=== PATIENT | female | born 1980 | race Caucasian/White ===

== ENCOUNTER 2024-08-08 16:35 | Outpatient (REF) | payer OTHER, MEDICAID, SELFPAY | END 2024-08-08 16:36 | disposition home or self-care (01) | LOC: LAB 16:35 | PROVIDERS: PCP Family Medicine; Visit Provider Obstetrics & Gynecology | DX: N92.1 Excessive and frequent menstruation with irregular cycle (principal); R10.2 Pelvic and perineal pain ==

== ENCOUNTER 2024-08-10 14:38 | Outpatient (OUT) | payer OTHER, BC, SELFPAY ==
--- OUTSIDE RECORDS SUMMARY | 2024-07-27 08:00 | XMS_ITS | Encounter Summary ---
Author Organization [facility] Address [address] [place] [address] Care Team Providers Care Passenger Locomotive Engineer Name Role Phone Sariah Ryan MD Primary Care Provider Encounter Details Date Type Department Care Team (Latest Contact Info) Description 07/27/2024 8:00 AM EDT Ancillary Procedure [facility] [address] [facility] [place] [address] Pelvic pain in female; Menorrhagia with irregular cycle Social History Tobacco Use Types Packs/Day Years Used Date Smoking Tobacco: Every Day Cigarettes Smokeless Tobacco: Never Alcohol Use Standard Drinks/Week Comments Yes 0 (1 standard drink = 0.6 oz pur e alcohol) caffeine 3-4 cups/day PHQ-2 Answer Date Recorded Patient Health Questionnaire-2 Score 0 01/07/2024 Comments No Sex and Gender Information Value Date Recorded Sex Assigned at Not on file Legal Sex Female 7:21 PM EDT Gender Identity Not on file Sexual Orientation Not on file documented as of this encounter Plan of Treatment Not on file documented as of this encounter Procedures Procedure Name Priority Date/Time Associated Diagnosis Comments US PELVIC COMPLETE W/ TV Routine 07/27/2024 8:35 AM EDT Pelvic pain in female Menorrhagia with irregular cycle documented in this encounter Results * US Pelvis w/ TV (07/27/2024 8:35 AM EDT) Anatomical Region Laterality Modality Pelvis Ultrasound 07/28/2024 10:2 4 AM EDT Narrative 07/28/2024 10:24 AM EDT EXAM: US PELVIC COMPLETE W/ TV HISTORY: Pelvic pain, menorrhagia, heavy and longer menstrual cycles x 1.5 years. COMPARISON: None available. TECHNIQUE: Two-dimensional transabdominal grayscale ultrasound imaging of the pelvis was performed. Color flow Doppler imaging of the ovaries were also performed. Transvaginal was performed. FINDINGS: UTERUS 8.4 x 3.9 x 5.2 cm The uterus is anteverted in position and demonstrates a normal, homogeneous echotexture. ENDOMETRIUM 0.5 cm The endometrium demonstrates a normal, homogeneous echotexture. RIGHT OVARY 4.1 x 2.0 x 3.8 cm The right ovary demonstrates a normal echotexture. There is normal color Doppler flow. There is a 1.7 cm dominant follicle. LEFT OVARY 2.9 x 1.2 x 2.7 cm The left ovary demonstrates a normal echotexture. There is normal color Doppler flow. No fluid is present within the cul-de-sac. IMPRESSION: 1. Unremarkable ultrasound of the pelvis. 2. Normal color Doppler flow within the bilateral ovaries. Interpreted by: Electronically signed by JACQUELINE ROLLINS II, MD, PHD at 28-Jul-2024 10:23:19 AM [facility] Procedure Note Jacqueline Rollins MD - 07/28/2024 EXAM: US PELVIC COMPLETE W/ TV HISTORY: Pelvic pain, menorrhagia, heavy and longer menstrual cycles x1.5 years. COMPARISON: None available. TECHNIQUE: Two-dimensional transabdominal grayscale ultrasound imaging ofthe pelvis was performed. Color flow Doppler imaging of the ovaries werealso performed. Transvaginal was performed. FINDINGS: UTERUS 8.4 x 3.9 x 5.2 cm The uterus is anteverted in position and demonstrates a normal,homogeneous echotexture. ENDOMETRIUM 0.5 cm The endometrium demonstrates a normal, homogeneous echotexture. RIGHT OVARY 4.1 x 2.0 x 3.8 cm The right ovary demonstrates a normal echotexture. There is normal colorDoppler flow. There is a 1.7 cm dominant follicle. LEFT OVARY 2.9 x 1.2 x 2.7 cm The left ovary demonstrates a normal echotexture. There is normal colorDoppler flow. No fluid is present within the cul-de-sac. IMPRESSION: 1. Unremarkable ultrasound of the pelvis. 2. Normal color Doppler flow within the bilateral ovaries. Interpreted by: Electronically signed by JACUQELINE ROLLINS II, MD, PHD [id number] 10:23:19 AM [facility] us Alexandru Alan DO [facility] US PROCEDURES Final Result documented in this encounter Visit Diagnoses Diagnosis Pelvic pain in female Unspecified symptom associated with female genital organs Menorrhagia with irregular cycle documented in this encounter Care Teams Passenger Locomotive Engineer Relationship Specialty Start Date End Date Sariah Ryan MD [address] [place] [address] PCP - General Family Medicine 06/23/22 documented as of this encounter
--- OUTSIDE RECORDS SUMMARY | 2024-08-08 10:30 | XMS_ITS | Encounter Summary ---
Author Organization [facility] Address [address] [place] [address] Care Team Providers Care Supervisor Painting Shipyard Name Role Phone Sariah Ryan MD Primary Care Provider [phone] Reason for Visit * Reason Comments Pre-op Visit EMBX Encounter Details Date Type Department Care Team (Late st Contact Info) Description 08/08/2024 10:30 AM EDT Procedure Visit [facility] OB [address] [facility] [facility] [place] [address] Alexandru Alan, DO [address] [place] [address] Pre-op examination; Dyspareunia in female; Menorrhagia with regular cycle; Pelvic pain; Dysmenorrhea Social History Tobacco Use Types Packs/Day Years [...] on file documented as of this encounter Last Filed Vital Signs Vital Sign Reading Time Taken Comments Blood Pressure 108/70 08/08/2024 10:40 AM EDT Pulse - - Temperature - - Respiratory Rate - - Oxygen Saturation - - Inhaled Oxygen Concentration - - Weight 69.3 kg (152 lb 12 oz) 08/08/2024 10:40 A M EDT Height - - Body Mass Index 24.65 01/07/2024 2:42 PM EST documented in this encounter Progress Notes * Claudia Ruvalcaba - 08/08/2024 10:30 AM EDT Reason for Appointment: Patient ID: Felicitas Waldron is a 43 y.o. female who presents for Pre-op Visit and EMBX Patient presents today for Pre Op/Endometrial Biopsy appointment. Patient is scheduled to undergo Da Rodrick assisted Laparoscopic Hysterectomy, possible exploratory laparotomy, possible BSO, possible cystoscopy on 09-06-[address] Alan at [facility]. 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 12/08/2022 Situational stress 04/07/2023 Resolved Ambulatory Problems Diagnosis Date Noted No Resolved Ambulatory Problems Past Medical History: Diagnosis Date Dean's esophagus Esophageal reflux Gastritis and gastroduodenitis History of medical problems Kidney infection 2011 Menometrorrhagia Migraine without status migrainosus, not intractable, unspecified migraine type HISTORY PAST MEDICAL HISTORY SOCIAL HISTORY Past Medical History: Diagnosis Date Dean's esophagus no treatment and cleared Esophageal reflux Gastritis and gastroduodenitis without mention of hemorrhage History of medical problems insomnia Kidney infection 2011 Menometrorrhagia Migraine without status migrainosus, not intractable, unspecified migraine type Social History Tobacco Use Smoking status: Every Day Types: Cigarettes Smokeless tobacco: Never Substance Use Topics Alcohol use: Yes Comment: caffeine 3-4 cups/day Drug use: Never FAMILY HISTORY Family History Problem Relation Name Age of Onset Thyroid disease Mother Macular degeneration Mother Drug abuse Father marijuana Alcohol abuse Father SURGICAL HISTORY Past Surgical History: Procedure Laterality Date CARPAL TUNNEL RELEASE Left 2011 CYST REMOVAL Left 2006 left wrist ENDOMETRIAL ABLATION 2011 menometrorrhagia KNEE SURGERY 1999 TONSILLECTOMY 1987 TUBAL LIGATION Bilateral 2013 REVIEW OF SYSTEMS Review of Systems: Review of Systems Constitutional: Negative. HENT: Negative. Eyes: Negative. Respiratory: Negative. Cardiovascular: Negative. Gastrointestinal: Negative. Genitourinary: Positive for dyspareunia, menstrual problem and pelvic pain. Musculoskeletal: Negative. Skin: Negative. Neurological: Negative. All other systems reviewed and are negative. Hematological: Negative. Endocrine: Negative. Allergic/Immunologic: Negative. OBJECTIVE Objective: Physical Exam Constitutional: Appearance: Normal appearance. She is well-developed. Genitourinary: Vulva normal. Cardiovascular: Rate and Rhythm: Normal rate and regular rhythm. Pulmonary: Effort: Pulmonary effort is normal. Breath sounds: Normal breath sounds. Abdominal: General: Bowel sounds are normal. There is no distension. Palpations: Abdomen is soft. Tenderness: There is no abdominal tenderness. There is no guarding or rebound. Musculoskeletal: General: No swelling. Normal range of motion. Right lower leg: No edema. Left lower leg: No edema. Neurological: Mental Status: She is alert and oriented to person, place, and time. Skin: General: Skin is warm and dry. Psychiatric: Mood and Affect: Mood normal. Behavior: Behavior normal. Vitals and nursing note reviewed. Exam conducted with a veneer clipper present. Vitals: Estimated body mass index is 25.06 kg/m?? as calculated from the following: Height as of 01/07/24: 5' 6 . Weight as of 07/13/24: 155 lb 4 oz. BP: Patient's last menstrual period was 07/06/2024. Pt declines UPT today due to previous salpingectomy. ASSESSMENT & PLAN ICD-10-CM 1. Pre-op examination Z01.818 2. Dyspareunia in female N94.10 3. Menorrhagia with regular cycle N92.0 4. Pelvic pain R10.2 5. Dysmenorrhea N94.6 EMBX: Patient was placed in dorsal lithotomy position with feet in stirrups. A sterile speculum was placed into the vagina and the cervix was visualized. The cervix was grasped with a single tooth tenaculum. The endometrial pipette was placed through the cervix into the uterus, endometrial curettage was performed and sampling was obtained, endometrial curettings were placed in formalin, and single tooth tenaculum was removed. Excellent hemostasis was assured. All instruments were removed from vagina. Pre Op: Patient is doing well but has complaints of menorrhagia, pelvic pain, dyspareunia, dysmenorrhea. I have discussed conservative management vs. surgical management with the patient in detail and patient desires surgical management at this time. Patient will undergo Da Rodrick assisted Laparoscopic Hysterectomy, possible exploratory laparotomy, possible BSO, possible cystoscopy on 09/06/24. Surgical consents were signed, mmc was reviewed, and patient is to proceed to [facility] OR. Follow Up: Patient is to follow up at 1 & 6 weeks post operative to assess proper healing and recovery from procedure. Documented by Felicitas Palma LPN on behalf of: Alexandru Alan DO documented in this encounter Miscellaneous Notes * Addendum Note - Melisa Collado - 08/08/2024 10:30 AM EDTAddended by: MELISA COLLADO on: 08/08/2024 11:21 AM Modules accepted: Orders documented in this encounter Plan of Treatment Scheduled Orders Name Type Priority Associated Diagnoses Orde r Schedule CBC and differential Lab Routine Menorrhagia with regular cycle Ordered: 08/08/2024 TSH Lab Routine Menorrhagia with regular cycle Ordered: 08/08/2024 hCG, quantitative, Lab Routine Menorrhagia with regular cycle Ordered: 08/08/2024 Protime-INR Lab Routine Menorrhagia with regular cycle Ordered: 08/08/2024 T4, free Lab Routine Menorrhagia with regular cycle Ordered: 08/08/2024 APTT Lab Routine Menorrhagia with regular cycle Expected: 08/08/2024 (Approximate), Expires: 08/08/2025 Hemoglobin A1c Lab Routine Menorrhagia with regular cycle Ordered: 08/08/2024 documented as of this encounter Visit Diagnoses Diagnosis Pre-op examination Dyspareunia in female Menorrhagia with regular cycle Pelvic pain Dysmenorrhea documented in this encounter Care Teams Supervisor Painting Shipyard Relationship Specialty Start Date End Date Sariah Ryan MD [address] [place] [address] PCP - General Family Medicine 06/23/22 documented as of this encounter
--- OUTSIDE RECORDS SUMMARY | 2024-08-09 20:33 | XMS_ITS | Continuity of Care Document ---
Author Organization [facility] Address [address] [place] [address] Phone Care Team Providers Care Leasing Consultant Name Role Phone Alexandru Alan DO Attending Provider Care Teams Patient Care Team Team Status: Inactive Member Role Status Dates Alexandru Alan DO Attending Provider Active Start : August 08, 2024 End: August 08, 2024 Chief Complaint and Reason for Visit Chief Complaint Admit Date Unknown August 08, 2024 9:00 am Social History Smoking Status Unknown if ever smoked Observation Status Observation Response Date of Response Legal Sex Female (finding) Sex Assigned At Female 1980 Insurance Providers Guarantor Felicitas Waldron Address [address] [place] [id number] Contact Info. Home Phone: C Payer Policy Id Subscriber's Name Subscriber Id Effectiv e Date Expiration Date [place] [employer]age [id number] Encounters Encounter Location(s) Arrival/Admit Date Discharge/Depart Date Provider(s) Departed Referred -LAB [facility] August 08, 2024 9:00am August 08, 2024 9:01am Alexandru Alan Plan of Treatment Future Tests Future scheduled test information is unavailable Pending Tests Test Name Ordered Date Scheduled Date Miscellaneous Pathology Test August 08, 2024 12: 00am Future Visits Future appointment information is unavailable Referrals to Other Providers Referral information is unavailable Future Procedures Procedure Name Ordered Date Scheduled Date Pathology Request for Lab Nick[facility] August 09, 2024 1 :09pm August 08, 2024 12:00am Future Medications Future medication information is unavailable Patient Instructions Patient instructions are unavailable
--- OUTSIDE RECORDS SUMMARY | 2024-08-10 14:10 | XMS_ITS | Encounter Summary ---
Author Organization [facility] Address [address] [facility] [place] [address] Care Team Providers Care Asset Manager Name Role Phone Sariah Ryan MD Primary Care Provider [phone] Reason for Visit * Reason Comments Well Women Visit Encounter Details Date Type Department Care Team (Late st Contact Info) Description 08/10/2024 2:10 PM EDT Office Visit [facility] OB [address] [facility] [place] [address] Britt Christensen PA [address] [facility] [address] [place], [facility]11 Well woman exam with routine gynecological exam; Breast cancer screening by mammogram Social History Tobacco Use Types Packs/Day Years [...] Sign Reading Time Taken Comments Blood Pressure 112/74 08/10/2024 2:10 PM EDT Pulse - - Temperature - - Respiratory Rate - - Oxygen Saturation - - Inhaled Oxygen Concentration - - Weight 69.6 kg (153 lb 6.4 oz) 08/10/2024 2:10 P M EDT Height - - Body Mass Index 24.76 01/07/2024 2:42 PM EST documented in this encounter Plan of Treatment Scheduled Orders Name Type Priority Associated Diagnoses Orde r Schedule THIN PREP TIS PAP AND HR HPV DNA Pathology and Cytology Routine Well woman exam with routine gynecological exam Ordered: 08/10/2024 documented as of this encounter Visit Diagnoses Diagnosis Well woman exam with routine gynecological exam Routine gynecological examination Breast cancer screening by mammogram documented in this encounter Care Teams Asset Manager Relationship Specialty Start Date End Date Sariah Ryan MD [address] [place] [address] PCP - General Family Medicine 06/23/22 documented as of this encounter
--- OUTSIDE RECORDS SUMMARY | 2024-08-10 14:45 | XMS_ITS | Encounter Summary ---
Author Organization [facility] Address [address] [place] [address] Care Team Providers Care Clinical Operations Consultant Name Role Phone Sariah Ryan MD Primary Care Provider [phone] Encounter Details Date Type Department Care Team (Late st Contact Info) Description 08/10/2024 Bamboo flowsheet [facility] OB [address] [facility] [place] [id number] Britt Christensen PA [address] [facility] [address] [place], [facility] Social History Tobacco Use Types Packs/Day Years [...] on file documented as of this encounter Visit Diagnoses Not on filedocumented in this encounter Care Teams Clinical Operations Consultant Relationship Specialty Start Date End Date Sariah Ryan MD [address] [facility] [place] [address] PCP - General Family Medicine 06/23/22 documented as of this encounter
--- OUTSIDE RECORDS SUMMARY | 2024-08-10 14:45 | XMS_ITS | Clinical Summary ---
Author Organization [facility] tem Address [id number] [address] [place] [address] Care Team Providers Care Telephone Advice Nurse Name Role Phone Sariah Ryan MD Primary Care Provider [phone] Allergies Active Allergy Reactions Criticality Noted Date Comments Penicillins Rash Low 05/18/2017 Medications venlafaxine (EFFEXOR) 37.5 mg tablet Take 37.5 mg by mouth 2 (two) times a day. Active traZODone (DESYREL) 50 mg tablet Take 50 mg by mouth nightly. Active Active Problems No known active problems Immunizations Immunization Administration Dates Next Due Tdap 07/02/2016 Social History Tobacco Use Types Packs/Day Years Used Date Smoking Tobacco: Former Smokeless Tobacco: Never Alcohol Use Standard Drinks/Week Comments Yes 0 (1 standard drink = 0.6 oz pur e alcohol) Childcare Answer Date Recorded Childcare Unknown 07/27/2018 Employment Answer Date Recorded Employment Unknown 07/27/2018 Purpose - Life Answer Date Recorded Purpose and direction in life Unknown Comments No Sex and Gender Information Value Date Recorded Sex Assigned at Not on file Legal Sex Female 12:09 PM EDT Gender Identity Not on file Sexual Orientation Not on file Last Filed Vital Signs Vital Sign Reading Time Taken Comments Blood Pressure 110/77 05/18/2017 9:00 PM EDT Pulse 89 05/18/2017 9:00 PM EDT Temperature 36.8 C (98.3 F) 05/18/2017 9:00 PM EDT Respiratory Rate 18 05/18/2017 9:00 PM EDT Oxygen Saturation 97% 05/18/2017 9:00 PM EDT Inhaled Oxygen Concentration - - Weight 72.7 kg (160 lb 4.4 oz) 05/18/2017 9:00 P M EDT Height 170.2 cm (5' 7 ) 05/18/2017 9:00 PM EDT Body Mass Index 25.1 05/18/2017 9:00 PM EDT Plan of Treatment Not on file Medical Devices Not on file Insurance MEDICAID Care Teams Telephone Advice Nurse Relationship Specialty Start Date End Date Sariah Ryan MD PCP - General Family Medicine 07/02/16
--- OUTSIDE RECORDS SUMMARY | 2024-08-10 14:45 | XMS_ITS | Clinical Summary ---
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 [address] [place] [address] Britt Christensen PA Well woman exam with routine gynecological exam; Breast cancer screening by mammogram 08/10/[address] [address] [place] [address] Britt Christensen PA 08/08/2024 10:30 AM EDT Procedure Visit [facility] [address] [place] [address] Alexandru Alan DO Pre-op examination; Dyspareunia in female; Menorrhagia with regular cycle; Pelvic pain; Dysmenorrhea 07/27/2024 8:00 AM EDT Ancillary Procedure [facility] [address] [place] [address] Pelvic pain in female; Menorrhagia with irregular cycle 07/13/2024 9:10 AM EDT Office Visit [facility] [address] [facility] [place] [address] Alexandru Alan DO Encounter for consultation; Pelvic pain in female; Menorrhagia with irregular cycle 07/13/[address] [facility] [address] [facility] [facility] [place] [address] Alexandru Alan DO from Last 3 Months Family History Medical History Relation Name Comments Alcohol abuse Father Drug abuse Father marijuana Macular degeneration Mother Thyroid disease Mother Relation Name Status Comments Father Alive Mother Alive Social History Tobacco Use Types Packs/Day Years Used Date Smoking Tobacco: Every Day Cigarettes Smokeless Tobacco: Never Tobacco Cessation:Ready to Q uit: Not Asked; Counseling Given: Not Answered Alcohol Use Standard Drinks/Week Comments Yes 0 [...] Pressure 112/74 08/10/2024 2:10 PM EDT Pulse 87 01/07/2024 2:42 PM EST Temperature 37 C (98.6 F) 02/17/2023 4:39 PM EST Respiratory Rate 18 01/07/2024 2:42 PM EST Oxygen Saturation 100% 01/07/2024 2:42 PM EST Inhaled Oxygen Concentration - - Weight 69.6 kg (153 lb 6.4 oz) 08/10/2024 2:10 P M EDT Height 167.6 cm (5' 6 ) 01/07/2024 2:42 PM EST Body Mass Index 24.76 01/07/2024 2:42 PM EST Plan of Treatment Health Maintenance Due Date Last Done Comments Influenza Vaccine (Season Ended) 2024 Mammogram 03/22/2025 03/22/2024, 10/2024, 12/24/2022 Cervical Cancer Screening 06/04/2026 HPV/Cotest 06/04/2026 06/04/2021, 04/20/2017 Pap Smear 06/04/2026 06/04/2021 Procedures Procedure Name Priority Date/Time Associated Diagnosis Comments US PELVIC COMPLETE W/ TV Routine 07/27/2024 8:35 AM EDT Pelvic pain in female Menorrhagia with irregular cycle BI MAMMOGRAM DIAGNOSTIC TOMOSYNTHESIS LEFT Routine 03/22/2024 10:57 AM EST Abnormal mammogram of left breast Q - THINPREP(R) TIS AND HPV MRNA E6/E7 RFL HPV 16,18/45 Routine 06/04/2021 PAP SMEAR Routine 06/04/2021 12:00 AM EDT from Last 3 Months or Most Recently Relevant to Health Maintenance Results * US Pelvis w/ TV (07/27/2024 [...] II, MD, PHD at 28-Jul-2024 10:23:19 AM [facility] Procedure Note Jacqueline Rollins MD - [...] signed by JACQUELINE ROLLINS II, MD, PHD 10:23:19 AM [facility] us Alexandru Waqas DO [facility] US PROCEDURES Final Result * Left diagnostic mammogram with tomosynthesis (03/22/2024 10:57 AM EST) Anatomical Region Laterality Modality Breast Left Mammography 03/22/2024 4:59 PM EST Impressions 03/22/2024 5:07 PM EST No convincing evidence of neoplasm suggested in the left breast. Previously noted 12 mm fairly round density in the left breast again identified, likely representing a cyst, possibly a complex cyst when correlated with ultrasound study. Other possibilities would be less likely. Follow-up diagnostic mammogram study of the left breast as well as ultrasound study of the left breast in 6 months recommended to assess stability. BIRADS 3 - Probably Benign Findings DENSITY: The breasts are heterogeneously dense, which may obscure small masses. FOLLOW-UP: Diagnostic Mammogram in 6 Months, breast ultrasound in 6 months Board Certified Radiologists. Accredited by the ACR and FDA. MAMMOGRAPHY IS VERY IMPORTANT TO YOUR HEALTH. THE [place]IET[employer] GUIDELINES RECOMMEND THAT WOMEN 40 YEARS OF AGE AND OLDER SHOULD HAVE A MAMMOGRAM EVERY YEAR. A REMINDER LETTER WILL BE SENT AT THE APPROPRIATE TIME. ELECTRONICALLY SIGNED BY: Rick Torrez M.D. Narrative 03/22/2024 5:07 PM EST EXAMINATION: BI MAMMOGRAM DIAGNOSTIC TOMOSYNTHESIS LEFT CLINICAL HISTORY: callback TECHNIQUE: Diagnostic digital mammogram study of the left breast was performed with 2D and 3D tomosynthesis imaging. Study was compared to the screening mammogram study of the breasts dated 02/24/2024 and ultrasound study of the left breast dated 03/22/2024. FINDINGS: Coned-down compression views and true lateral view of the left breast were obtained. Previously noted fairly round approximately 12 mm density in the left breast is again seen, near the midline somewhat superiorly located on the true lateral view. Ultrasound study demonstrates likely cyst, possibly a complex cyst at this level. Other likely benign findings on ultrasound. When correlating all studies no convincing evidence of neoplasm. Sariah Ryan MD IMG BI PROCEDURES Final Result * Q - THINPREP(R) TIS AND HPV MRNA E6/E7 RFL HPV 16,18/45 (06/04/2021) CLINICAL INFORMATION: None given [facility] LMP: None given [facility] PREV. PAP: None given [facility] PREV. BX: None given [facility] SOURCE: None given [facility] STATEMENT OF ADEQUACY: SEE NOTE [facility] Comment: Satisfactory for evaluation. Endocervical/transformation zone component present. INTERPRETATION/RE SULT: Negative for intraepithelial lesion or malignancy. [facility] COMMENT: This Pap test has been evaluated with computer assisted technology. [facility] MILITARY PROFESSIONAL: SEE NOTE NO [facility] Comment: SHIRLEY TEAGUE(ASCP) CT screening location: [facility] [address], [place] [address]. COMMENT SEE NOTE [facility] Comment: EXPLANATORY NOTE: The Pap is a screening test for cervical cancer. It is not a diagnostic test and is subject to false negative and false positive results. It is most reliable when a satisfactory sample, regularly obtained, is submitted with relevant clinical findings and history, and when the Pap result is evaluated along with historic and current clinical information. HPV MRNA E6/E7 Not Detected Not Detected [facility] Comment: Methodology: Continuous Wave Operator-Mediated Amplification This assay detects E6/E7 viral messenger RNA (mRNA) from 14 high-risk HPV types (16,18,31,33,35,39,45,51,52,56,58,59,66,68). The analytical performance characteristics of this assay have been determined by [employer]. The modifications have not been cleared or approved by the FDA. This assay has been validated pursuant to the CLIA regulations and is used for clinical purposes. For additional information, please refer to http://education.Gamestaq/faq/HSL439t5 (This link if provided for information/ educational purposes only.) 06/04/2021 Elysia Franco NP [facility] Final Result Performing Organization Address City/[facility]/ZIP Co de Phone Number [facility] * Pap Smear (06/04/2021 12:00 AM EDT) Swab Cervical swab / Unknown us Elysia Franco NP LAB CYTOLOGY ORDERABLES Final Re sult Performing Organization Address City/[facility]/ZIP Co de Phone Number EXTERNAL LAB from Last 3 Months or Most Recently Relevant to Health Maintenance Insurance AET[employer] ANTHEM BCBS MEDICAID [place] Care Teams Company Driver Relationship Specialty Start Date End Date Sariah Ryan MD [address] [place] [address] PCP - General Family Medicine 06/23/22
[2024-08-10 15:03] LABS: Basophils Absolute Auto 0.1 10^3/uL (0.0-0.1); Basophils Percent Auto 0.6 % (0.2-2.0); Eosinophils Absolute Auto 0.3 10^3/uL (0.0-0.7); Eosinophils Percent Auto 3.6 % (0.9-7.0); Hematocrit 39.3 % (36.0-48.0); Hemoglobin 13.4 g/dL (12.0-16.0); Immature Granulocytes Abs Auto 0.01 10^3/uL (0.00-0.03); Immature Granulocytes Pct Auto 0.1 % (0.0-0.5); Lymphocytes Absolute Auto 2.6 10^3/uL (1.2-3.8); Lymphocytes Percent Auto 32.8 % (20.5-60.0); Mean Corpuscular HGB Conc 34.1 g/dL (29.9-35.2); Mean Corpuscular Hemoglobin 32.1 pg (26.7-34.0); Mean Platelet Volume 9.2 fL (9.5-13.5); Monocytes Absolute Auto 0.8 10^3/uL (0.3-0.8); Monocytes Percent Auto 10.5 % (1.7-12.0); Neutrophils Absolute Auto 4.1 10^3/uL (1.4-6.5); Neutrophils Percent Auto 52.4 % (43.0-75.0); Platelet Count 268 10^3/uL (150-450); Red Blood Count 4.18 10^6/uL (4.20-5.40); Red Cell Distribution Width 12.3 % (11.0-15.0); White Blood Count 7.9 10^3/uL (4.0-11.0)
[2024-08-10 15:28] LABS: Estimated Average Glucose 108 mg/dL; Glycohemoglobin A1C 5.4 % (4.5-6.2)
[2024-08-10 15:29] LABS: INR 0.97; Prothrombin Time 10.3 sec (9.0-11.6)
[2024-08-10 15:43] LABS: HCG Quantitative <1 mIU/mL; Thyroid Stimulating Hormone 1.213 uIU/mL (0.358-3.740)
[2024-08-10 15:54] LABS: Free T4 0.93 ng/dL (0.76-1.46)
== END 2024-08-10 14:39 | disposition home or self-care (01) ==
PROVIDERS: PCP Family Medicine; Visit Provider Obstetrics & Gynecology
DX: Z01.419 Encounter for gynecological examination (general) (routine) without abnormal findings (principal); N92.0 Excessive and frequent menstruation with regular cycle
CPT/HCPCS: 36415; 83036; 84439; 84443; 84702; 85025; 85610; 85730; 87624; 88175

== ENCOUNTER 2024-08-10 18:06 | Outpatient (REF) | payer OTHER, MEDICAID, SELFPAY | END 2024-08-10 18:07 | disposition home or self-care (01) | LOC: LAB 18:06 | PROVIDERS: PCP Family Medicine; Visit Provider Physician Assistant | DX: Z01.419 Encounter for gynecological examination (general) (routine) without abnormal findings (principal) | CPT/HCPCS: 87624; 88175 ==

== ENCOUNTER 2024-08-28 10:03 | Outpatient (OUT) | payer OTHER, MEDICAID, SELFPAY ==
--- OUTSIDE RECORDS SUMMARY | 2024-08-28 10:05 | XMS_ITS | Encounter Summary ---
Author Organization [facility] Address [address] [place] [address] Care Team Providers Care Cutter Grinder Name Role Phone Sariah Ryan MD Primary Care Provider [phone] Encounter Details Date Type Department Care Team (Late st Contact Info) Description 08/08/2024 External Result Encounter [facility] External Department Unsolicited Alexandru Alan, DO [address] [facility] [place] [address] Social History Tobacco Use Types Packs/Day Years [...] Procedure Name Priority Date/Time Associated Diagnosis Comments PATHOLOGY REQUEST FOR LAB AGUILA Routine 08/08/2024 12:00 AM EDT documented in this encounter Results * PATHOLOGY REQUEST FOR LAB AGUILA (08/08/2024 12:00 AM EDT) PATHOLOGY REQUEST FOR LAB AGUILA 08/15/2024 8:16 AM EDT [facility] Comment:See report. Scanned copy available in EMR. Other Topography unknown / Unknown 08/08/2024 08/09/2024 1:09 PM EDT Narrative [facility] - 08/15/2024 8:16 AM EDT EMB us Alexandru Alan DO LAB BLOOD ORDERABLES Final Resul t [facility] [address] [place] [address], [facility] [address] [place] [address] documented in this encounter Visit Diagnoses Not on filedocumented in this encounter Care Teams Cutter Grinder Relationship Specialty Start Date End Date Sariah Ryan MD [address] [place] [address] PCP - General Family Medicine 06/23/22 documented as of this encounter
--- OUTSIDE RECORDS SUMMARY | 2024-08-28 10:05 | XMS_ITS | Encounter Summary ---
Author Organization [facility] Address [address] [facility] [place] [address] Care Team Providers Care Lead Java Programmer Name Role Phone Sariah Ryan MD Primary Care Provider [phone] Encounter Details Date Type Department Care Team (Late st Contact Info) Description 08/17/2024 Orders Only [facility] [address] [facility] [place] [address] Vicki Rios MA Social History Tobacco Use Types Packs/Day Years [...] Procedure Name Priority Date/Time Associated Diagnosis Comments PAP SMEAR Routine 08/10/2024 12:00 AM EDT documented in this encounter Results * Pap Smear (08/10/2024 12:00 AM EDT) Swab Cervical swab / Unknown us Britt GA LAB CYTOLOGY ORDERABLES Final Re sult EXTERNAL LAB documented in this encounter Visit Diagnoses Not on filedocumented in this encounter Care Teams Lead Java Programmer Relationship Specialty Start Date End Date Sariah Ryan MD [address] [place] [address] PCP - General Family Medicine 06/23/22 documented as of this encounter
--- OUTSIDE RECORDS SUMMARY | 2024-08-28 10:05 | XMS_ITS | Clinical Summary ---
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 [address] [place] [address] Vicki Rios MA 08/10/2024 2:10 PM EDT Office Visit [facility] [address] [place] [address] Britt Christensen PA Well woman exam with routine gynecological exam; Breast cancer screening by mammogram 08/10/2024 Clinisync Result Encounter [facility] External Department Unsolicited Alexandru Alan DO 08/10/[address] [address] [place] [address] Britt Christensen PA 08/08/2024 10:30 AM EDT Procedure Visit [facility] [address] [place] [address] Alexandru Alan DO Pre-op examination; Dyspareunia in female; Menorrhagia with regular cycle; Pelvic pain; Dysmenorrhea 08/08/20[address] [facility] [address] [place] [address] Alexandru Alan DO 08/08/2024 External Result Encounter [facility] External Department Unsolicited Alexandru Alan DO 07/27/2024 8:00 AM EDT Ancillary Procedure [facility] [address] [place] [address] Pelvic pain in female; Menorrhagia with irregular cycle 07/13/2024 9:10 AM EDT Office Visit [facility] [address] [place] [address] Alexandru Alan DO Encounter for consultation; Pelvic pain in female; Menorrhagia with irregular cycle 07/13/2024 Bamboo flowsheet [facility] [address] [place] [phone] Alexandru Alan DO from Last 3 Months [...] Due Date Last Done Comments Influenza Vaccine (#1) 2024 Mammogram 03/22/2025 03/22/2024, 02/24/2024, 10/2022 Cervical Cancer Screening 06/04/2026 HPV/Cotest 06/04/2026 06/04/2021, 04/20/2017 Pap Smear 08/11/2027 08/10/2024, 06/04/2021 Procedures Procedure Name Priority Date/Time Associated Diagnosis Comments ALL THYROXINE (T4) FREE Routine 08/10/2024 2:55 PM EDT [facility] PREG QUANT HCG Routine 08/10/2024 2: 55 PM EDT ALL THYROID STIM HORMONE Routine 08/10/2024 2:55 PM EDT [facility] APTT Routine 08/10/2024 2:55 PM EDT [facility] PROTHROMBIN TIME INR W/O COUM Routine 08/10/2024 2:55 PM EDT MLR HEMOGLOBIN A1C Routine 08/10/2024 2: 55 PM EDT ALL CBC WITH AUTO DIFF Routine 2:55 PM EDT IGP,APTIMA HPV,AGE GDLN Routine 08/10/2024 1:59 PM EDT PAP SMEAR Routine 08/10/2024 12:00 AM EDT PATHOLOGY REQUEST FOR LAB AGUILA Routine 08/08/2024 12:00 AM EDT US PELVIC COMPLETE W/ TV Routine 07/27/2024 8:35 AM EDT Pelvic pain in female Menorrhagia with irregular cycle BI MAMMOGRAM DIAGNOSTIC TOMOSYNTHESIS LEFT Routine 03/22/2024 10:57 AM EST Abnormal mammogram of left breast Q - THINPREP(R) TIS AND HPV MRNA E6/E7 RFL HPV 16,18/45 Routine 06/04/2021 from Last 3 Months or Most Recently Relevant to Health Maintenance Results * [facility] PREG QUANT HCG (08/10/2024 2:55 PM EDT) HCG QUANTITATIVE <1 mIU/mL TB Comment: 5-50 0.2-1 WEEK 50-500 1-2 WEEKS 100-5,000 2-3 WEEKS 500-10,000 3-4 WEEKS 1,000-50,000 4-5 WEEKS 10,000-100,000 5-6 WEEKS 15,000-200,000 6-8 WEEKS 10,000-100,000 2-3 MONTHS 08/10/2024 2:55 PM EDT 08/10/2024 2:59 PM EDT Narrative [facility] - 08/10/2024 3:44 PM EDT Generic External Data Provider [facility] F inal Result Performing Organization Address City/[facility]/ZIP Co de Phone Number [facility] * [facility] PROTHROMBIN TIME INR W/O COUM (08/10/2024 2:55 PM EDT) PROTHROMBIN TIME 10.3 9.0 - 11.6 sec TB TB INR 0.97 TB Comment: DESIRED INR: 2.0-3.0 CONDITIONS NOT LISTED BELOW 2.5-3.5 FOR PROSTHETIC HEART VALVE REPLACEMENT 2.5-3.5 RECURRENT THROMBOSIS 08/10/2024 2:55 PM EDT 08/10/2024 2:59 PM EDT Narrative [facility] - 08/10/2024 3:30 PM EDT us Alexandru Alan DO [facility] Final Result [facility] * MLR HEMOGLOBIN A1C (08/10/2024 2:55 PM EDT) GLYCOHEMOGLOBIN A1C 5.4 4.5 - 6.2 % [facility] Comment: ADA RECOMMENDED LIMIT 4.0 - 6.0 ADA THERAPEUTIC TARGET < 7.0 ACTION SUGGESTED > 7.0 ESTIMATED AVERAGE GLUCOSE 108 mg/dL [facility] 08/10/2024 2:55 PM EDT 08/10/2024 2:59 PM EDT Narrative [facility] - 08/10/2024 3:30 PM EDT [email or web address] DO CLIN[facility] Final Result Performing Organization Address [facility]/ZIP Co de Phone Number [facility] * [facility] APTT (08/10/2024 2:55 PM EDT) PARTIAL THROMBOPLASTIN TIME 28.0 22.3 - 36.2 sec [facility] 08/10/2024 2:55 PM EDT 08/10/2024 2:59 PM EDT Narrative [facility] - 08/10/2024 3:30 PM EDT [email or web address] DO CLIN[facility] Final Result Performing Organization Address [facility] Co de Phone Number [facility] * ALL THYROXINE (T4) FREE (08/10/2024 2:55 PM EDT) Pathologist [facility] FREE T4 0.93 0.76 - 1.46 ng/dL [facility] 08/10/2024 2:55 PM EDT 08/10/2024 2:59 PM EDT Narrative [facility] - 08/10/2024 3:57 PM EDT Alexandrustormy Rosarioo DO [facility] Final Result Performing Organization Address [facility] Co de Phone Number [facility] * ALL THYROID STIM HORMONE (08/10/2024 2:55 PM EDT) THYROID STIMULATING HORMONE 1.213 0.358 - 3.740 uIU/mL [facility] 08/10/2024 2:55 PM EDT 08/10/2024 2:59 PM EDT Narrative [facility] - 08/10/2024 3:44 PM EDT us Generic External Data Provider [facility] F inal Result [facility] * (ABNORMAL) ALL CBC WITH AUTO DIFF (08/10/2024 2:55 PM EDT) TB WBC 7.9 4.0 - 11.0 10 3/uL [facility] TBH RBC 4.18(L) 4.20 - 5.40 10 6/uL [facility] TBH HGB 13.4 12.0 - 16.0 g/dL TBH TBH HCT 39.3 36.0 - 48.0 % [facility] TBH MCV 94.0 81.0 - 99.0 fL TBH TBH MCH 32.1 26.7 - 34.0 pg TBH TBH MCHC 34.1 29.9 - 35.2 g/dL [facility] TBH RDW 12.3 11.0 - 15.0 % TBH TBH PLT 268 150 - 450 10 3/uL TBH TBH MPV 9.2(L) 9.5 - 13.5 fL [facility]H NEUTROPHILS PERCENT AUTO 52.4 43.0 - 75.0 % TBH LYMPHOCYTES PERCENT AUTO 32.8 20.5 - 60.0 % TBH MONOCYTES PERCENT AUTO 10.5 1.7 - 12.0 % TBH TBH EO % 3.6 0.9 - 7.0 % TBH BASOPHILS PERCENT AUTO 0.6 0.2 - 2.0 % [facility] IMMATURE GRANULOCYTES PCT AUTO 0.1 0.0 - 0.5 % TBH NEUTROPHILS ABSOLUTE AUTO 4.1 1.4 - 6.5 10 3/uL TBH LYMPHOCYTES ABSOLUTE AUTO 2.6 1.2 - 3.8 10 3/uL TBH MONOCYTES ABSOLUTE AUTO 0.8 0.3 - 0.8 10 3/uL TBH TBH EO # 0.3 0.0 - 0.7 10 3/uL TBH BASOPHILS ABSOLUTE AUTO 0.1 0.0 - 0.1 10 3/uL TBH IMMATURE GRANULOCYTES ABS AUTO 0.01 0.00 - 0.03 10 3/uL [facility] 08/10/2024 2:55 PM EDT 08/10/2024 2:59 PM EDT Narrative [facility] - 08/10/2024 3:16 PM EDT us Generic External Data Provider CHRISTIANNEKELVINKATHE Poonam santiago Result [facility] TB * IGP,APTIMA HPV,AGE GDLN (08/10/2024 1:59 PM EDT) AGE GDLN ACOG TESTING Note . [facility] Comment: TESTS RESULT FLAG UNITS REF RANGE LAB Clinician Provided Cytology Information Source.............Cervix;Endocervix No. of containers..01 ThinPrep Vial Age Cesaro ACOG Karis... 30-65 01 FLAG LEGEND: L-Low Normal,H-High Normal,LL-Alert Low,HH-Alert High <-Panic Low,>-Panic High,A-Abnormal,AA-Critical Abnormal Performed at: 01 =[facility] [place] [address] Criselda Huerta MD, IGP, APTIMA HPV, RFX 16/18,45 Note . [facility] Comment: TESTS RESULT FLAG UNITS REF RANGE LAB DIAGNOSIS: 02 NEGATIVE FOR INTRAEPITHELIAL LESION OR MALIGNANCY. Specimen adequacy: 02 Satisfactory for evaluation. Endocervical and/or squamous metaplastic cells (endocervical component) are present. Performed by: 02 Rani Bowei Small Engine Specialist ([facility]) . 02 Note: Note 02 The Pap smear is a screening test designed to aid in the detection of premalignant and malignant conditions of the uterine cervix. It is not a diagnostic procedure and should not be used as the sole means of detecting cervical cancer. Both false-positive and false-negative reports do occur. Test Methodology: Note 02 This liquid based ThinPrep(R) pap test was screened with the use of an image guided system. HPV Genotype Reflex Note 02 Criteria not met, HPV Genotype not performed. FLAG LEGEND: L-Low Normal,H-High Normal,LL-Alert Low,HH-Alert High <-Panic Low,>-Panic High,A-Abnormal,AA-Critical Abnormal Performed at: 02 [facility] [place] [place] [address] Criselda Huerta MD, HPV APTIMA Negative Negative [facility] Comment: This nucleic acid amplification test detects fourteen high- risk HPV types (16,18,31,33,35,39,45,51,52,56,58,59,66,68) without differentiation. Performed at: =G - [facility] [place] [place], [place] [id number] Soda Flaker: Criselda Huerta MD, Phone: [phone] Performed at: [address] [id number] Soda Flaker: Criselda Huerta MD, Phone: [phone] 08/10/2024 1:59 PM EDT 08/10/2024 7:17 PM EDT Narrative [facility] - 08/15/2024 11:08 AM EDT BRUSH-SPATULA CERVIX ENDOCERVIX Britt GA LAB BLOOD ORDERABLES Final Resul t Performing Organization Address [facility]/ZIP Co de Phone Number [facility] * Pap Smear (08/10/2024 12:00 AM EDT) Swab Cervical swab / Unknown Britt GA LAB CYTOLOGY ORDERABLES Final Re sult Performing Organization Address City/[facility]/ZIP Co de Phone Number EXTERNAL LAB * PATHOLOGY REQUEST FOR LAB AGUILA (08/08/2024 12:00 AM EDT) PATHOLOGY REQUEST FOR LAB AGUILA 08/15/2024 8:16 AM EDT [facility] Comment:See report. Scanned copy available in EMR. Other Topography unknown / Unknown 08/08/2024 08/09/2024 1:09 PM EDT Narrative [facility] - 08/15/2024 8:16 AM EDT EMB Alexandru Alan DO LAB BLOOD ORDERABLES Final Resul t Performing Organization Address [facility]/ZIP Co de Phone Number [facility] [address] [place] [address], [facility] [address] [place] [address] * US Pelvis w/ TV (07/27/2024 8:35 [...] II, MD, PHD at 28-Jul-2024 10:23:19 AM [facility] Procedure Note Jacqueline Rollins MD - [...] JACQUELINE ROLLINS II, MD, PHD 10:23:19 AM [facility] us Alexandru Alan DO [facility] US PROCEDURES Final Result * Left diagnostic [...] IS VERY IMPORTANT TO YOUR HEALTH. THE [employer] [employer] GUIDELINES RECOMMEND THAT WOMEN 40 [...] all studies no convincing evidence of neoplasm. us Sariah Ryan MD IMG BI PROCEDURES Final [...] computer assisted technology. [facility] INSULATION HELPER: SEE NOTE NO [facility] Comment: SHIRLEY TEAGUE(ASCP) CT screening location: [place] [address]. COMMENT SEE NOTE [facility] Y EXTERNAL [...] Detected [facility] Comment: Methodology: Primer And Powder Canning Leader-Mediated Amplification This assay detects E6/E7 viral messenger RNA (mRNA) from 14 high-risk HPV types (16,18,31,33,35,39,45,51,52,56,58,59,66,68). The analytical performance characteristics of this assay have been determined by [employer]. The modifications have not been cleared or approved by the FDA. This assay has been validated pursuant to the CLIA regulations and is used for clinical purposes. For additional information, please refer to http://education.ALLGOOB.[employer]/faq/MJT599e2 (This link if provided for information/ educational purposes only.) 06/04/2021 Elysia Franco NP [facility] Final Result [facility] from Last 3 Months or Most Recently Relevant to Health Maintenance Insurance AET ANTHEM BCBS MEDICAID [place] Care Teams Ammonia Technician Relationship Specialty Start Date End Date Sariah Ryan MD [address] [place] [address] PCP - General Family Medicine 06/23/22
--- OUTSIDE RECORDS SUMMARY | 2024-08-28 10:05 | XMS_ITS | Encounter Summary ---
Author Organization [facility] Address [address] [facility] [place] [address] Care Team Providers Care Resident Manager Name Role Phone Sariah Ryan MD Primary Care Provider [phone] Encounter Details Date Type Department Care Team (Late st Contact Info) Description 08/08/2024 Abstract [facility] OB [address] [place] [id number] Alexandru Alan, DO [address] [place], [id number] Social History Tobacco Use Types Packs/Day Years [...] on filedocumented in this encounter Care Teams Resident Manager Relationship Specialty Start Date End Date Sariah Ryan MD [address] [facility] [place] [address] PCP - General Family Medicine 06/23/22 documented as of this encounter
--- OUTSIDE RECORDS SUMMARY | 2024-08-28 10:05 | XMS_ITS | Clinical Summary ---
Author Organization [facility] tem Address [id number] [address] [place] [address] Care Team Providers Care Commissioning Agent Name Role Phone Sariah Ryan MD Primary Care Provider [phone] Allergies Active Allergy Reactions Criticality Noted Date [...] Not on file Insurance MEDICAID Care Teams Commissioning Agent Relationship Specialty Start Date End Date Sariah Ryan MD PCP - General Family Medicine 07/02/16
[2024-08-28 11:02] LABS: Hematocrit 40.1 % (36.0-48.0); Hemoglobin 13.3 g/dL (12.0-16.0); Immature Granulocytes Abs Auto 0.02 10^3/uL (0.00-0.03); Immature Granulocytes Pct Auto 0.3 % (0.0-0.5); Lymphocytes Absolute Auto 2.0 10^3/uL (1.2-3.8); Mean Corpuscular HGB Conc 33.2 g/dL (29.9-35.2); Mean Corpuscular Hemoglobin 31.1 pg (26.7-34.0); Mean Corpuscular Volume 93.9 fL (81.0-99.0); Platelet Count 282 10^3/uL (150-450); Red Blood Count 4.27 10^6/uL (4.20-5.40); White Blood Count 7.8 10^3/uL (4.0-11.0)
[2024-08-28 11:10] LABS: INR 0.94; Partial Thromboplastin Time 27.5 sec (22.3-36.2); Prothrombin Time 10.0 sec (9.0-11.6)
[2024-08-28 11:13] LABS: Alanine Aminotransferase 19 U/L (14-59); Albumin Globulin Ratio 1.2; Albumin Level 3.6 g/dL (3.4-5.0); Alkaline Phosphatase 64 U/L (46-116); Anion Gap 11.0; Aspartate Amino Transferase 10 U/L (15-37); Blood Urea Nitrogen 10.0 mg/dL (7.0-18.0); Calcium 9.1 mg/dL (8.5-10.1); Carbon Dioxide 27.1 mmol/L (21.0-32.0); Chloride 106 mmol/L (98-107); Estimated GFR (African America >60 (>=60 mL/min/1.73m^2); Estimated GFR (Non-African Ame >60 (>=60 mL/min/1.73m^2); Globulin 3.1 g/dL; Glucose 89 mg/dL (74-106); Potassium 4.1 mmol/L (3.5-5.1); Sodium 140 mmol/L (136-145); Total Protein 6.7 g/dL (6.4-8.2)
== END 2024-08-28 10:04 | disposition home or self-care (01) ==
LOC: PST 10:03
PROVIDERS: PCP Family Medicine; Visit Provider Obstetrics & Gynecology
DX: Z01.812 Encounter for preprocedural laboratory examination (principal); R10.2 Pelvic and perineal pain; N92.0 Excessive and frequent menstruation with regular cycle; N94.10 Unspecified dyspareunia; N94.6 Dysmenorrhea, unspecified
CPT/HCPCS: 80048; 80076; 85025; 85610; 85730; 86850; 86900; 86901

== ENCOUNTER 2024-09-06 06:02 | Day surgery (SDC) | payer OTHER, MEDICAID, SELFPAY ==
[2024-08-28 10:23] VITALS: BP 120/54; PULSE 61; TEMP 36.3; O2SAT 100; BMI 23.4
[2024-09-06] VITALS (12 sets, daily range): BP systolic 104–114; BP diastolic 57–78; PULSE 65–90; TEMP 36.2–36.8; O2SAT 95–100; BMI 24.1
--- OUTSIDE RECORDS SUMMARY | 2024-09-06 06:06 | XMS_ITS | Clinical Summary ---
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 Herpes labialis 12/08/2022 Encounters Date Type Department Care Team Description 08/28/2024 Clinisync Result Encounter [facility] External Department Unsolicited Provider, Generic External Data 08/17/2024 Orders Only [facility] [address] [place] [address] Vicki Rios MA 08/10/2024 2:10 PM EDT Office Visit [facility] [address] [place] [address] Britt Christensen PA Well woman exam with routine gynecological exam; Breast cancer screening by mammogram 08/10/2024 Clinisync Result Encounter NOMS External Department Unsolicited Alexandru Alan DO 08/10/2024 Bamboo flowsheet [facility] [address] [place] [address] Britt Christensen PA 08/08/2024 10:30 AM EDT Procedure Visit [facility] [address] [place] [address] Alexandru Alan DO Pre-op examination; Dyspareunia in female; Menorrhagia with regular cycle; Pelvic pain; Dysmenorrhea 08/08/2024 Abstract [facility] [address] [place] [phone] Alexandru Alan DO 08/08/2024 External Result Encounter NOMS External Department Unsolicited Alexandru Alan DO 07/27/2024 8:00 AM EDT Ancillary Procedure [facility] [address] [place] [phone] Pelvic pain in female; Menorrhagia with irregular cycle 07/13/2024 9:10 AM EDT Office Visit [facility] [address] [place] [phone] Alexandru Alan DO Encounter for consultation; Pelvic pain in female; Menorrhagia with irregular cycle 07/13/2024 Bamboo flowsheet [facility] [address] [place] [phone] Alexandru Alan DO from Last 3 Months [...] Procedure Name Priority Date/Time Associated Diagnosis Comments [facility] APTT Routine 08/28/2024 10:36 AM EDT [facility] PROTHROMBIN TIME INR W/O COUM Routine 08/28/2024 10:36 AM EDT ALL TYPE AND SCREEN Routine 08/28/2024 1 0:36 AM EDT ALL BASIC METABOLIC PANEL Routine 08/28/2024 10:36 AM EDT HMHP LIVER PANEL Routine 08/28/2024 10:3 6 AM EDT ALL CBC WITH AUTO DIFF Routine 10:36 AM EDT ALL THYROXINE (T4) FREE Routine 08/10/2024 2:55 [...] Recently Relevant to Health Maintenance Results * [facility] PROTHROMBIN TIME INR W/O COUM (08/28/2024 10:36 AM EDT) Only the most recent of2 resultswithin the time period is included. PROTHROMBIN TIME 10.0 9.0 - 11.6 sec TBH TBH INR 0.94 TBH Comment: DESIRED INR: 2.0-3.0 CONDITIONS NOT LISTED BELOW 2.5-3.5 FOR PROSTHETIC HEART VALVE REPLACEMENT 2.5-3.5 RECURRENT THROMBOSIS 08/28/2024 10:3 6 AM EDT 08/28/2024 10:38 AM EDT Narrative CLINISYNC - 08/28/2024 2:04 PM EDT us Alexandru Waqas DO CLINISYNC Final Result CLINISYNC TB * (ABNORMAL) [facility] LIVER PANEL (08/28/2024 10:36 AM EDT) BILIRUBIN TOTAL 0.6 0.2 - 1.0 mg/dL TB BILIRUBIN DIRECT 0.1 0.0 - 0.2 mg/dL TB ASPARTATE AMINO TRANSFERASE 10(L) 15 - 37 U/L TBH ALANINE AMINOTRANSFERASE 19 14 - 59 U/L TBH ALKALINE PHOSPHATASE 64 46 - 116 U/L TB TOTAL PROTEIN 6.7 6.4 - 8.2 g/dL TBH ALBUMIN LEVEL 3.6 3.4 - 5.0 g/dL TBH GLOBULIN 3.1 g/dL TB ALBUMIN GLOBULIN RATIO 1.2 TB 08/28/2024 10:3 6 AM EDT 08/28/2024 10:38 AM EDT Narrative CLINISYNC - 08/28/2024 11:14 AM EDT Generic External Data Provider CLINISYNC F inal Result Performing Organization Address [facility]/ZIP Co de Phone Number [facility] * [facility] APTT (08/28/2024 10:36 AM EDT) Only the most recent of2 resultswithin the time period is included. PARTIAL THROMBOPLASTIN TIME 27.5 22.3 - 36.2 sec TB 08/28/2024 10:3 6 AM EDT 08/28/2024 10:38 AM EDT Narrative CLINISYNC - 08/28/2024 2:04 PM EDT us Alexandru Alan DO CLINISYNC Final Result Performing Organization Address City/[facility]/ZIP Co de Phone Number CLINISYNC TB * ALL TYPE AND SCREEN (08/28/2024 10:36 AM EDT) BLOOD TYPE O Positive TBH ANTIBODY SCREEN NEGATIVE TB 08/28/2024 10:3 6 AM EDT 08/28/2024 10:38 AM EDT Narrative CLINISYNC - 08/28/2024 12:11 PM EDT Spec expiration changed by [id number] on 08/28/24 Reason: SURGICAL EXTENSION [facility] , Alexandru Alan DO CLINISYNC Final Result CLINISYNC [facility] * (ABNORMAL) ALL CBC WITH AUTO DIFF (08/28/2024 10:36 AM EDT) Only the most recent of2 resultswithin the time period is included. TBH WBC 7.8 4.0 - 11.0 10 3/uL TBH TBH RBC 4.27 4.20 - 5.40 10 6/uL TBH TBH HGB 13.3 12.0 - 16.0 g/dL TBH TBH HCT 40.1 36.0 - 48.0 % TBH TBH MCV 93.9 81.0 - 99.0 fL TBH TBH MCH 31.1 26.7 - 34.0 pg TBH TBH MCHC 33.2 29.9 - 35.2 g/dL TBH TBH RDW 12.7 11.0 - 15.0 % TBH TBH PLT 282 150 - 450 10 3/uL TBH TBH MPV 9.6 9.5 - 13.5 fL TBH NEUTROPHILS PERCENT AUTO 59.5 43.0 - 75.0 % TBH LYMPHOCYTES PERCENT AUTO 25.2 20.5 - 60.0 % TBH MONOCYTES PERCENT AUTO 11.7 1.7 - 12.0 % TBH TBH EO % 2.7 0.9 - 7.0 % TBH BASOPHILS PERCENT AUTO 0.6 0.2 - 2.0 % TBH IMMATURE GRANULOCYTES PCT AUTO 0.3 0.0 - 0.5 % TBH NEUTROPHILS ABSOLUTE AUTO 4.7 1.4 - 6.5 10 3/uL TBH LYMPHOCYTES ABSOLUTE AUTO 2.0 1.2 - 3.8 10 3/uL TBH MONOCYTES ABSOLUTE AUTO 0.9(H) 0.3 - 0.8 10 3/uL TBH TBH EO # 0.2 0.0 - 0.7 10 3/uL TBH BASOPHILS ABSOLUTE AUTO 0.1 0.0 - 0.1 10 3/uL TBH IMMATURE GRANULOCYTES ABS AUTO 0.02 0.00 - 0.03 10 3/uL TBH 08/28/2024 10:3 6 AM EDT 08/28/2024 10:38 AM EDT Narrative CLINISYNC - 08/28/2024 11:11 AM EDT Alexandru Rosarioo DO CLINISYNC Final Result Performing Organization Address City/[facility]/ZIP Co de Phone Number [facility] * ALL BASIC METABOLIC PANEL (08/28/2024 10:36 AM EDT) SODIUM 140 136 - 145 mmol/L TBH POTASSIUM 4.1 3.5 - 5.1 mmol/L TBH CHLORIDE 106 98 - 107 mmol/L TBH CARBON DIOXIDE 27.1 21.0 - 32.0 mmol/L TBH ANION GAP 11.0 TBH GLUCOSE 89 74 - 106 mg/dL TBH BLOOD UREA NITROGEN 10.0 7.0 - 18.0 mg/dL TBH CREATININE 0.70 0.55 - 1.02 mg/dL TBH TBH EGFR-AF MICRONESIAN >60 >=60 mL/min/1.7 3m 2 TBH TBH EGFR-NON AF MICRONESIAN >60 >=60 mL/min/1.7 3m 2 TBH BUN CREATININE RATIO 14.3 TBH CALCIUM 9.1 8.5 - 10.1 mg/dL TBH 08/28/2024 10:3 6 AM EDT 08/28/2024 10:38 AM EDT Narrative CLINISYNC - 08/28/2024 11:14 AM EDT Generic External Data Provider CLINISYNC F inal Result [facility] * TBH PREG QUANT HCG (08/10/2024 2:55 PM EDT) HCG QUANTITATIVE <1 mIU/mL TBH Comment: 5-50 0.2-1 WEEK 50-500 1-2 WEEKS 100-5,000 2-3 WEEKS 500-10,000 3-4 WEEKS 1,000-50,000 4-5 WEEKS 10,000-100,000 5-6 WEEKS 15,000-200,000 6-8 WEEKS 10,000-100,000 2-3 MONTHS 08/10/2024 2:55 PM EDT 08/10/2024 2:59 PM EDT Narrative CLINISYNC - 08/10/2024 3:44 PM EDT Generic External Data Provider MINH henderson Result Performing Organization Address City/[facility] Co de Phone Number [facility] * MLR HEMOGLOBIN A1C (08/10/2024 2:55 PM EDT) GLYCOHEMOGLOBIN A1C 5.4 4.5 - 6.2 % [facility] Comment: ADA RECOMMENDED LIMIT 4.0 - 6.0 ADA THERAPEUTIC TARGET < 7.0 ACTION SUGGESTED > 7.0 ESTIMATED AVERAGE GLUCOSE 108 mg/dL TB 08/10/2024 2:55 PM EDT 08/10/2024 2:59 PM EDT Narrative CLINISYNC - 08/10/2024 3:30 PM EDT [facility] Waqas DO MINH Final Result Performing Organization Address [facility] de Phone Number [facility] * ALL THYROXINE (T4) FREE (08/10/2024 2:55 PM EDT) FREE T4 0.93 0.76 - 1.46 ng/dL TB 08/10/2024 2:55 PM EDT 08/10/2024 2:59 PM EDT Narrative CLINISYNC - 08/10/2024 3:57 PM EDT Alexandru Waqas DO CLINISYNC Final Result Performing Organization Address [facility] Co de Phone Number [facility] * ALL THYROID STIM HORMONE (08/10/2024 2:55 PM EDT) THYROID STIMULATING HORMONE 1.213 0.358 - 3.740 uIU/mL TB 08/10/2024 2:55 PM EDT 08/10/2024 2:59 PM EDT Narrative CLINISYNC - 08/10/2024 3:44 PM EDT Generic External Data Provider FLORENCIOKATHE Poonam inadakota Result MINH [facility] * IGP,APTIMA HPV,AGE GDLN (08/10/2024 1:59 PM EDT) AGE GDLN ACOG TESTING Note . [facility] Comment: TESTS RESULT FLAG UNITS REF RANGE LAB Clinician Provided Cytology Information Source.............Cervix;Endocervix No. of containers..01 ThinPrep Vial Age Algo ACOG Karis... 30-65 01 FLAG LEGEND: L-Low Normal,H-High Normal,LL-Alert Low,HH-Alert High <-Panic Low,>-Panic High,A-Abnormal,AA-Critical Abnormal Performed at: 01 =G Jeri [address] [address] Criselda Huerta MD, IGP, APTIMA HPV, RFX 16/18,45 Note . [facility] Comment: TESTS RESULT FLAG UNITS REF RANGE LAB DIAGNOSIS: 02 NEGATIVE FOR INTRAEPITHELIAL LESION OR MALIGNANCY. Specimen adequacy: 02 Satisfactory for evaluation. Endocervical and/or squamous metaplastic cells (endocervical component) are present. Performed by: 02 Rani Bowie Primary Montessori Teacher ([facility]) . 02 Note: Note 02 The [...] <-Panic Low,>-Panic High,A-Abnormal,AA-Critical Abnormal Performed at: [address] [place] [address] Criselda Huerta MD, HPV APTIMA Negative Negative [facility] Comment: This nucleic acid amplification test detects fourteen high- risk HPV types (16,18,31,33,35,39,45,51,52,56,58,59,66,68) without differentiation. Performed at: =[facility], [place] [id number] Industrial Seamstress: Criselda Huerta MD, Phone: [phone] Performed at: [facility] - [facility] [id number] Industrial Seamstress: Criselda Huerta MD, Phone: [phone] 08/10/2024 1:59 PM EDT 08/10/2024 7:17 PM EDT Narrative CHRISTIANNEISYNC - 08/15/2024 11:08 AM EDT BRUSH-SPATULA CERVIX ENDOCERVIX us Britt GA LAB BLOOD ORDERABLES Final Resul t Performing Organization Address [facility] Co de Phone Number CLINISYNC TB * Pap Smear (08/10/2024 12:00 AM EDT) Swab Cervical swab / Unknown us Britt GA LAB CYTOLOGY ORDERABLES Final Re sult Performing Organization Address [facility] de Phone Number EXTERNAL LAB * PATHOLOGY REQUEST FOR LAB AGUILA (08/08/2024 12:00 AM EDT) PATHOLOGY REQUEST FOR LAB AGUILA 08/15/2024 8:16 AM EDT [facility] Comment:See report. Scanned copy available in EMR. Other Topography unknown / Unknown 08/08/2024 08/09/2024 1:09 PM EDT Narrative [facility] - 08/15/2024 8:16 AM EDT EMB us Alexandru Alan DO LAB BLOOD ORDERABLES Final Resul t Performing Organization Address [facility] de Phone Number [facility] [address] [place] [address], [facility] [address] [place] [address] * US Pelvis w/ TV (07/27/2024 8:35 [...] II, MD, PHD at 28-Jul-2024 10:23:19 AM [facility] Procedure Note Jacqueline Rollins MD - [...] signed by JACQUELINE ROLLINS II, MD, PHD [id number] 10:23:19 AM [facility] us Alexandru Alan DO [place] US PROCEDURES Final Result * Left diagnostic [...] IS VERY IMPORTANT TO YOUR HEALTH. THE [employer]CRONES[employer] SOCIET[employer] GUIDELINES RECOMMEND THAT WOMEN 40 [...] evidence of neoplasm. us Sariah Ryan MD IM BI PROCEDURES Final Result * Q - [...] computer assisted technology. [facility] BEADWORKER: SEE NOTE NO [facility] Comment: JEReece, CT(ASCP) CT screening location: [employer] [facility], [address] [place] [address]. COMMENT SEE NOTE [facility] LEGAC Y EXTERNAL [...] Detected [facility] Comment: Methodology: Repair Cameraman-Mediated Amplification This assay detects E6/E7 viral messenger RNA (mRNA) from 14 high-risk HPV types (16,18,31,33,35,39,45,51,52,56,58,59,66,68). The analytical performance characteristics of this assay have been determined by [employer]. The modifications have not been cleared or approved by the FDA. This assay has been validated pursuant to the CLIA regulations and is used for clinical purposes. For additional information, please refer to http://education.Ezakus.WikiRealty/faq/BOZ470f6 (This link if provided for information/ educational purposes only.) 06/04/2021 Elysia Franco NP [facility] Final Result [facility] from Last 3 Months or Most Recently Relevant to Health Maintenance Insurance AET [employer] BCBS MEDICAID [place] Care Teams Fireworks Inspector Relationship Specialty Start Date End Date Sariah Ryan MD [address] [place] [address] PCP - General Family Medicine 06/23/22
--- OUTSIDE RECORDS SUMMARY | 2024-09-06 06:06 | XMS_ITS | Encounter Summary ---
Author Organization [facility] Address [address] [facility] [place] [address] Care Team Providers Care Cloak Room Attendant Name Role Phone Sariah Ryan MD Primary Care Provider [phone] Encounter Details Date Type Department Care Team (Late st Contact Info) Description 08/08/2024 Abstract [facility] OB [address] [place] [phone] Alexandru Alan, DO [address] [place], [facility] Social History Tobacco Use Types Packs/Day Years [...] on filedocumented in this encounter Care Teams Cloak Room Attendant Relationship Specialty Start Date End Date Sariah Ryan MD [address] [facility] [place], [place] [id number] PCP - General Family Medicine 06/23/22 documented as of this encounter
--- OUTSIDE RECORDS SUMMARY | 2024-09-06 06:06 | XMS_ITS | Encounter Summary ---
Author Organization [facility] Address [address] [place] [address] Care Team Providers Care Ticket Broker Name Role Phone Sariah Ryan MD Primary Care Provider [phone] Encounter Details Date Type Department Care Team (Late st Contact Info) Description 08/28/2024 Clinisync Result Encounter N[facility] External Department Unsolicited Provider, Generic External Data Social History Tobacco Use Types Packs/Day Years [...] Procedure Name Priority Date/Time Associated Diagnosis Comments [facility] PROTHROMBIN TIME INR W/O COUM Routine 08/28/2024 10:36 AM EDT [facility] LIVER PANEL Routine 08/28/2024 10:3 6 AM EDT CCF APTT Routine 08/28/2024 10:36 AM EDT ALL TYPE AND SCREEN Routine 08/28/2024 1 0:36 AM EDT ALL CBC WITH AUTO DIFF Routine 08/28/2024 10:36 AM EDT ALL BASIC METABOLIC PANEL Routine 08/28/2024 10:36 AM EDT documented in this encounter Results * [facility] APTT (08/28/2024 10:36 AM EDT) PARTIAL THROMBOPLASTIN TIME 27.5 22.3 - 36.2 sec TB 08/28/2024 10:3 6 AM EDT 08/28/2024 10:38 AM EDT Narrative CLINISYNC - 08/28/2024 2:04 PM EDT Alexandru Waqas DO [facility] Final [facility] * [facility] PROTHROMBIN TIME INR W/O COUM (08/28/2024 10:36 AM EDT) PROTHROMBIN TIME 10.0 9.0 - 11.6 sec TB TB INR 0.94 TBH Comment: DESIRED INR: 2.0-3.0 CONDITIONS NOT LISTED BELOW 2.5-3.5 FOR PROSTHETIC HEART VALVE REPLACEMENT 2.5-3.5 RECURRENT THROMBOSIS 08/28/2024 10:3 6 AM EDT 08/28/2024 10:38 AM EDT Narrative CLINISYNC - 08/28/2024 2:04 PM EDT Alexandru Waqas DO [facility] Final Result [facility] * ALL TYPE AND SCREEN (08/28/2024 10:36 AM EDT) BLOOD TYPE O Positive TBH ANTIBODY SCREEN NEGATIVE TBH 08/28/2024 10:3 6 AM EDT 08/28/2024 10:38 AM EDT Narrative CLINISYNC - 08/28/2024 12:11 PM EDT Spec expiration changed by [id number] on 08/28/24 Reason: SURGICAL EXTENSION [facility] , Alexandru Waqas DO CLINISYNC Final Result Performing Organization Address [facility]/ZIP Co de Phone Number CLINISYNC TB * ALL BASIC METABOLIC PANEL (08/28/2024 10:36 [...] 0.55 - 1.02 mg/dL TBH TBH EGFR-AF ITALIAN >60 >=60 mL/min/1.7 3m 2 TBH TBH EGFR-NON AF ITALIAN >60 >=60 mL/min/1.7 3m 2 TBH BUN CREATININE RATIO 14.3 TBH CALCIUM 9.1 8.5 - 10.1 mg/dL TBH 08/28/2024 10:3 6 AM EDT 08/28/2024 10:38 AM EDT Narrative CLINISYNC - 08/28/2024 11:14 AM EDT Generic External Data Provider CLINISYNC F inal Result Performing Organization Address [facility] Co de Phone Number CLINISYNC TB * (ABNORMAL) [facility] LIVER PANEL (08/28/2024 10:36 AM EDT) BILIRUBIN TOTAL 0.6 0.2 - 1.0 mg/dL TBH BILIRUBIN DIRECT 0.1 0.0 - 0.2 mg/dL TBH ASPARTATE AMINO TRANSFERASE 10(L) 15 - 37 U/L TBH ALANINE AMINOTRANSFERASE 19 14 - 59 U/L TBH ALKALINE PHOSPHATASE 64 46 - 116 U/L TBH TOTAL PROTEIN 6.7 6.4 - 8.2 g/dL TBH ALBUMIN LEVEL 3.6 3.4 - 5.0 g/dL TBH GLOBULIN 3.1 g/dL TBH ALBUMIN GLOBULIN RATIO 1.2 TBH 08/28/2024 10:3 6 AM EDT 08/28/2024 10:38 AM EDT Narrative CLINISYNC - 08/28/2024 11:14 AM EDT us Generic External Data Provider CLINKELVINNC F inal Result [facility] * (ABNORMAL) ALL CBC WITH AUTO DIFF (08/28/2024 10:36 AM EDT) TB WBC 7.8 4.0 - 11.0 10 3/uL [...] Narrative CLINISYNC - 08/28/2024 11:11 AM EDT us Alexandru Waqas DO CLINISYNC Final [facility] documented in this encounter Visit Diagnoses Not on filedocumented in this encounter Care Teams Ticket Broker Relationship Specialty Start Date End Date Sariah Ryan MD [address] [place] [address] PCP - General Family Medicine 06/23/22 documented as of this encounter
--- OUTSIDE RECORDS SUMMARY | 2024-09-06 06:06 | XMS_ITS | Encounter Summary ---
Author Organization [facility] Address [address] [facility] [place] [address] Care Team Providers Care Geography Head Name Role Phone Sariah Ryan MD Primary Care Provider [phone] Encounter Details Date Type Department Care Team (Late st Contact Info) Description 08/17/2024 Orders Only [facility] OB [address] [place] [address] Vicki Rios MA Social History Tobacco [...] on filedocumented in this encounter Care Teams Geography Head Relationship Specialty Start Date End Date Sariah Ryan MD [address] [place] [address] PCP - General Family Medicine 06/23/22 documented as of this encounter
[2024-09-06 06:17] LABS: White Blood Count 7.7 10^3/uL (4.0-11.0)
[2024-09-06 06:18] LABS: Hematocrit 38.3 % (36.0-48.0); Hemoglobin 12.8 g/dL (12.0-16.0); Mean Corpuscular HGB Conc 33.4 g/dL (29.9-35.2); Mean Corpuscular Hemoglobin 31.4 pg (26.7-34.0); Mean Corpuscular Volume 93.9 fL (81.0-99.0); Platelet Count 272 10^3/uL (150-450); Red Blood Count 4.08 10^6/uL (4.20-5.40)
[2024-09-06 06:19] LABS: Immature Granulocytes Abs Auto 0.01 10^3/uL (0.00-0.03); Immature Granulocytes Pct Auto 0.1 % (0.0-0.5); Lymphocytes Absolute Auto 3.0 10^3/uL (1.2-3.8)
[2024-09-06] MEDS: METRONIDAZOLE/SODIUM CHLORIDE 500 MG/100 ML PREMIX 100 MG IV ×2 (07:08→14:16)
[2024-09-06] MEDS: CIPROFLOXACIN 400 MG/200 ML D5W PREMIX 200 MG IV (07:40)
--- NOTE | 2024-09-06 09:44 | PM.ONB ---
Brief Operative Note Date of procedure: 09/06/24 Pre-op diagnosis general: menorrhagia, dyspareunia, dysmenorrhea, failed ablation, pelvic pain Post-op diagnosis: same as pre-op Procedure: NAME OF PROCEDURE: ? Robotic assisted laparoscopic hysterectomy with cystoscopy, bilateral salpingectomy PROCEDURE:? The patient was taken back to the operating room, where she was prepped and draped in the normal sterile fashion after being placed in the dorsal lithotomy position.? Patient?s anesthesia was found to be adequate.? Surgical timeout was performed using two patient identifiers.? SCDs were on and in place.? Two grams of Ancef were given prior to the surgery.? Sterile Piedra catheter was inserted.? Standard size VCare was secured to the uterine cervix and the surgeon changed gloves.? Attention then was turned to the patient's abdomen, where a supraumbilical incision was then made.? Two S retractors were used to identify the patient?s fascia.? The fascia was then tented up using Alena clamps and the patient?s fascia was incised sharply.? Patient?s abdomen was identified and entered bluntly.? The patient had the trocar placed and a pneumoperitoneum was obtained.? Approximately 4 liters of CO2 gas was used.? The camera was then placed through the trocar.? At this time, two robot trocars were placed in the patient?s left and right side, two hand widths from the midline, and this was placed under direct visualization.? The patient?s tube on the right side was tented up and the vessel sealer was then used to come across the mesosalpinx, and this was carried down to the uterine ovarian ligament.? The vessel sealer was carried down serially to the broad ligament, to the area of the bladder flap, which was then created anteriorly, and the uterine arteries were skeletonized and sealed using the vessel sealer.? The colpotomy was made using the monopolar cautery on cut, and this was carried circumferentially, posteriorly to anteriorly, until the uterus was amputated.? The specimen was then removed intact through the vagina, without difficulty.? The vagina was then closed using two running V-Loc in a non-lock fashion.? The robot was undocked.? The abdomen was desufflated.? The skin defects were closed using 4-0 Vicryl.? Please note, the fascia was closed using 0 Vicryl.? Sponge, lap and needle counts were correct x2.? Patient was taken to recovery room in stable condition.? The patient was awakened by Anesthesia first.? Patient tolerated procedure well.?? Anesthesia: DORISA Surgeon: Alexandru Alan Production Tester: Johanny Espinoza Estimated blood loss (mL): 150 Pathology: other (uterus) Condition: stable Disposition: PACU Urinary Catheter Management Urinary Catheter Management Urethral: Cath placed during this visit: no
[2024-09-06] MEDS: IBUPROFEN 400 MG TABLET 800 MG PO (16:06)
[2024-09-06] MEDS: DOCUSATE SODIUM 100 MG CAPSULE PO (16:07)
[2024-09-06 16:10] LABS: Hematocrit 37.5 % (36.0-48.0); Hemoglobin 12.8 g/dL (12.0-16.0); Mean Corpuscular HGB Conc 34.1 g/dL (29.9-35.2); Mean Corpuscular Hemoglobin 31.8 pg (26.7-34.0); Mean Corpuscular Volume 93.3 fL (81.0-99.0); Platelet Count 267 10^3/uL (150-450); Red Blood Count 4.02 10^6/uL (4.20-5.40); White Blood Count 18.4 10^3/uL (4.0-11.0)
[2024-09-06 16:39] LABS: Basophils Abs Manual 0.00 10^3/uL (0.00-0.10); Basophils Percent Manual 0.0 % (0.2-2.0); Eosinophils Absolute Manual 0.00 10^3/uL (0.00-0.70); Eosinophils Percent Manual 0.0 % (0.9-7.0); Lymphocytes Absolute Manual 0.92 10^3/uL (1.20-3.80); Lymphocytes Percent Manual 5.0 % (20.5-60.0); Monocytes Absolute Manual 0.55 10^3/uL (0.30-0.80); Monocytes Percent Manual 3.0 % (1.7-12.0); Segmented Neut Absolute Manual 16.92 10^3/uL (1.4-6.5); Segmented Neutrophils % Manual 92.0 (43.0-75.0)
== END 2024-09-06 16:55 | disposition home or self-care (01) ==
LOC: SURGOUT 09:49 → MS 11:16
PROVIDERS: PCP Family Medicine; Visit Provider Obstetrics & Gynecology
PROC: (CPT 840; principal; 2024-09-06 07:30)
DX: R10.2 Pelvic and perineal pain (principal); N92.0 Excessive and frequent menstruation with regular cycle; N94.10 Unspecified dyspareunia; N94.6 Dysmenorrhea, unspecified; N80.03 Adenomyosis of the uterus; N83.8 Other noninflammatory disorders of ovary, fallopian tube and broad ligament; F17.210 Nicotine dependence, cigarettes, uncomplicated; Z98.51 Tubal ligation status
CPT/HCPCS: 58571; 36415; 84702; 85007; 85025; 85027; 88307; 94667; J0744; J1836